=== PATIENT | female | born 1995 | race Caucasian/White ===

== ENCOUNTER 2022-05-21 16:06 | Inpatient (IN) | payer OTHER, SELFPAY ==
[2022-05-21] VITALS (14 sets, daily range): BP systolic 113–136; BP diastolic 65–79; PULSE 72–99; TEMP 36.3–36.8; BMI 27.0
--- NOTE | 2022-05-21 16:06 | LDADM ---
This patient, Lee Ann Hairston, was admitted to Labor/Delivery/Recovery 109 on 05/21/22 at 16:06. Plans for labor, pain management and were discussed with patient. Patient/family oriented to hospital policies and general routines including ID bracelet, bed and alarms, visiting hours, pain management, procedures, bathroom and other care routines, personal items, smoking policy, room service/diet and guest tray routines, security routines, and visiting hours. Patient/Family are encouraged to report perceived risks to care and to ask questions if they do not understand what they are told or what they should do. See OBIX for further documentation.
[2022-05-21 16:41] LABS: Basophils Percent Auto 0.3 % (0.2-1.2); Eosinophils Percent Auto 0.3 % (0-4.4); Hematocrit 34.6 % (37.0-47.0); Hemoglobin 12.1 g/dL (12.0-15.0); Immature Granulocyte Absolute 0.08 K/mm3 (0.00-0.031); Immature Granulocyte Percent A 0.7 % (0-0.5); Lymphocytes Absolute Auto 1.57 K/mm3 (0.9-3.2); Mean Corpuscular Hemoglobin 35.8 pg (26-34); Mean Corpuscular Volume 102.4 fl (80-100); Mean Platelet Volume 9.2 fl (7.4-10.4); Monocytes Absolute Auto 0.6 K/mm3 (0.1-0.6); Neutrophils Absolute Auto 9.8 K/mm3 (1.3-6.7); Neutrophils Percent Auto 80.7 % (45.5-73.1); Platelet Count Result 186 k/mm3 (150-375); Red Blood Count 3.38 M/mm3 (4.2-5.4); Red Cell Distribution Width 13.3 % (11.5-14.5); White Blood Count 12.1 K/mm3 (4.5-10.0)
[2022-05-21] MEDS: DINOPROSTONE 10 MG VAG INSERT VAGINAL (16:54)
--- NOTE | 2022-05-21 17:54 | WPDANESEPPF ---
Anes - Initial Pre Proc Eval Procedure: labor epidural Date/Time: 05/21/22 17:54 Surgeon: Damian Gupta MD Pre Op Diagnosis: labor pain Pre Op Diagnosis: Induction of Labor Patient Data Age: 27 Gender: F Height: 1.68 m Weight: 76 kg Last Vital Signs Temp 36.7 C 05/21/22 16:40 Pulse 84 05/21/22 17:45 BP 122/74 05/21/22 17:45 O2 Del Method Room Air 05/21/22 16:44 Allergies Allergy/AdvReac Type Severity Reaction Status Date / Time No Known Allergies Allergy Verified 04/27/22 12:40 Home Medications Medication Instructions Recorded Confirmed Type prenat.vits,maryam,[id number] 1 tablet PO HS 04/27/22 04/27/22 History Laboratory Tests 05/21/22 05/21/22 05/21/22 16:33 16:33 16:34 WBC 12.1 K/mm3 H K/mm3 (4.5-10.0) RBC 3.38 M/mm3 L M/mm3 (4.2-5.4) Hgb 12.1 g/dL g/dL (12.0-15.0) Hct 34.6 % L % (37.0-47.0) MCV 102.4 fl H fl (80-100) MCH 35.8 pg H pg (26-34) MCHC 35.0 g/dl g/dl (32-36) RDW 13.3 % % (11.5-14.5) Plt Count 186 k/mm3 k/mm3 (150-375) MPV 9.2 fl fl (7.4-10.4) Immature Gran % (Auto) 0.7 % H % (0-0.5) Neut % (Auto) 80.7 % H % (45.5-73.1) Lymph % (Auto) 13.0 % L % (18.3-44.2) [place] % (Auto) 5.0 % % (2.6-8.5) Eos % (Auto) 0.3 % % (0-4.4) Baso % (Auto) 0.3 % % (0.2-1.2) Lymph # (Auto) 1.57 K/mm3 K/mm3 (0.9-3.2) [place] # (Auto) 0.6 K/mm3 K/mm3 (0.1-0.6) Eos # (Auto) 0.0 K/mm3 K/mm3 (0-0.3) Baso # (Auto) 0.0 K/mm3 K/mm3 (0.0-0.1) Abs Immat Gran (auto) 0.08 K/mm3 H K/mm3 (0.00-0.031) Absolute Neuts (auto) 9.8 K/mm3 H K/mm3 (1.3-6.7) Absolute Nucleated RBC 0.0 K/mm3 K/mm3 (0.0-0.012) Nucleated RBC % 0.0 % % (0.0-0.2) RPR Pending Blood Type A Positive Antibody Screen Pending Patient hx anesthesia problems: none Family hx anesthesia problems: none Results Review: All pre-operative results and documents have been reviewed as part of the pre-operative evaluation. [facility] Past Medical History Medical History (Updated 05/21/22 @ 17:55 by Vasquez Horn DO) History of back injury Surgical History Surgical History (Updated 05/21/22 @ 17:55 by Vasquez Horn DO) History of laminectomy 2014 Family History Family History (Updated 04/27/22 @ 12:44 by Oneida Miles RN) Father Hypertension Social History Social History Smoking status: Never smoker Substance use: never Spiritual care concerns: No Anes - Eval Final PreProcedure Day of Procedure 05/21/22 17:54 Patient weight: overweight ASA classification: II Anesthetic plan: proceed Anesthesia type and monitoring: regional epidural and standard monitoring Results Review: All pre-operative results and documents have been reviewed as part of the pre-operative evaluation. Informed Consent: The patient's anesthetic plan and its attendant risks and benefits were discussed with the patient/family/POA. Questions were solicited and answers provided to the satisfaction of the patient/family/POA.
[2022-05-22] VITALS (120 sets, daily range): BP systolic 53–146; BP diastolic 14–84; PULSE 40–143; RESP 18; TEMP 36.4–36.8; O2SAT 75–100
[2022-05-22] MEDS: fentaNYL CITRATE INJ (*CRX) 100 MCG/2 ML VIAL 50 MCG IV PUSH ×2 (04:40→06:35)
[2022-05-22] MEDS: LACTATED RINGERS 1,000 ML 125 ML IV CONT ×2 (06:01→06:35)
[2022-05-22] MEDS: OXYTOCIN 30 UNITS/NS 500 ML 30 UNITS/500 ML BAG IV CONT (06:01)
--- NOTE | 2022-05-22 08:38 | PM.IMHP ---
H&P: HPI History of Present Illness Date/Time: 05/22/22 08:38 Chief Complaint: Here to have a baby Narrative: 27 y/o G1 at 39 2/7 weeks here desiring induction of labor. GBS neg. Cervidil last night, has been withdrawn. Now comfortable with epidural. Review of Systems Review of Systems: All systems reviewed & are unremarkable except as noted in HPI and below PMFSH Past Medical History Medical History History of back injury Surgical History Surgical History History of laminectomy 2014 Family History Family History Father Hypertension Social History Social History Smoking status: Never smoker Substance use: never Spiritual care concerns: No Meds Home Medications and Allergies Home Medications Medication Instructions Recorded Confirmed Type prenat.vits,maryam,qhx-stih-xjuva 1 tablet PO HS 04/27/22 04/27/22 History Allergies Allergy/AdvReac Type Severity Reaction Status Date / Time No Known Allergies Allergy Verified 04/27/22 12:40 Vital Signs Vital Signs - 24 hr 05/21/22 16:44 05/21/22 16:42 05/21/22 16:40 Temperature 36.7 C Pulse Rate 87 Blood Pressure 136/76 Pulse Oximetry Oxygen Delivery Room Air 05/21/22 16:45 05/21/22 17:00 05/21/22 17:15 Temperature Pulse Rate 89 99 84 Blood Pressure 129/68 131/79 125/72 Pulse Oximetry Oxygen Delivery 05/21/22 17:30 05/21/22 17:45 05/21/22 18:00 Temperature Pulse Rate 85 84 88 Blood Pressure 124/74 122/74 113/69 Pulse Oximetry Oxygen Delivery 05/21/22 18:15 05/21/22 18:30 05/21/22 18:45 Temperature Pulse Rate 78 79 80 Blood Pressure 115/65 117/74 123/76 Pulse Oximetry Oxygen Delivery 05/21/22 19:01 05/21/22 19:01 05/21/22 19:01 Temperature Pulse Rate 94 82 Blood Pressure 115/75 123/79 Pulse Oximetry Oxygen Delivery 05/21/22 19:00 05/21/22 23:01 05/22/22 02:59 Temperature 36.3 C L 36.8 C Pulse Rate 72 69 Blood Pressure 126/74 127/76 Pulse Oximetry Oxygen Delivery 05/22/22 05:59 05/22/22 06:01 05/22/22 06:15 Temperature Pulse Rate 90 73 88 Blood Pressure 135/80 128/84 146/80 H Pulse Oximetry Oxygen Delivery 05/22/22 06:31 05/22/22 06:44 05/22/22 06:45 Temperature Pulse Rate 75 92 Blood Pressure 136/62 132/54 L Pulse Oximetry 100 Oxygen Delivery 05/22/22 06:48 05/22/22 06:49 05/22/22 06:51 Temperature Pulse Rate 85 70 Blood Pressure 131/56 L 123/68 Pulse Oximetry 100 Oxygen Delivery 05/22/22 06:53 05/22/22 06:54 05/22/22 06:56 Temperature Pulse Rate 87 74 Blood Pressure 122/78 121/56 L Pulse Oximetry 100 Oxygen Delivery 05/22/22 06:58 05/22/22 06:59 05/22/22 07:01 Temperature Pulse Rate 81 78 Blood Pressure 128/68 113/59 L Pulse Oximetry 100 Oxygen Delivery 05/22/22 07:03 05/22/22 07:04 05/22/22 07:06 Temperature Pulse Rate 85 77 Blood Pressure 114/60 113/56 L Pulse Oximetry 99 Oxygen Delivery 05/22/22 07:08 05/22/22 07:09 05/22/22 07:10 Temperature Pulse Rate 68 73 Blood Pressure 118/63 126/71 Pulse Oximetry 99 Oxygen Delivery 05/22/22 07:13 05/22/22 07:14 05/22/22 07:16 Temperature Pulse Rate 109 H 74 Blood Pressure 113/68 127/61 Pulse Oximetry 99 Oxygen Delivery 05/22/22 07:18 05/22/22 07:19 05/22/22 07:20 Temperature Pulse Rate 78 72 Blood Pressure 117/63 116/58 L Pulse Oximetry 100 Oxygen Delivery 05/22/22 07:23 05/22/22 07:24 05/22/22 07:26 Temperature Pulse Rate 87 67 Blood Pressure 102/65 117/62 Pulse Oximetry 98 Oxygen Delivery 05/22/22 07:28 05/22/22 07:29 05/22/22 07:30 Temperature 36.7 C Pulse Rate 85 68 Blood Pressure 102/5
--- NOTE | 2022-05-22 12:13 | PM.OBPNLAB ---
Pain Control Date/time seen: 05/22/22 12:13 Comments: Feeling more pressure. AVSS NST reactive TOCO: contractions every 2-3 min Cervix complete / +2 Begin pushing.
--- NOTE | 2022-05-22 13:44 | PM.OBPRVD ---
OB - Delivery Note Procedure Delivery date: 05/22/22 Procedure: Induction of labor with Induction method: Per Pitocin Protocol Delivery augmentation: Rupture of Membranes Delivery monitor: External FHT, External Uterine and Internal Uterine Route of delivery: Laceration Description: Perineal - 2nd Degree Delivery repair: vicryl (3-0) Quantitative Blood Loss (ml): 380 Anesthesia type: Epidural Disposition: PACU Complications: None Narrative: 27 y/o G1 at 39 2/7 weeks gestation who presented to the hospital for induction of labor. Oxytocin was administered intravenously. Amniotomy was performed with return of clear fluid. She received an epidural for pain control. Her labor progressed and her cervix dilated completely. She pushed with good effort and delivered the infant's head to the perineum, followed by the body. The nose and mouth were bulb suctioned. After a delay, the cord was clamped and cut. The was handed off the field. Cord blood was collected. The placenta delivered spontaneously and was grossly normal in appearance. The usual 3 vessel cord was noted. A second degree midline perineal laceration was sustained. This was reapproximated using 3 0 Vicryl in the usual layered fashion. Excellent hemostasis resulted as did excellent reapproximation of the normal anatomy. Needle and instrument counts were correct. The patient was taken to recovery room in stable condition. The went to the nursery in stable condition. I was present and scrubbed for the entire delivery. Baby Date of : 05/22/22 Time of : 13:13 Weeks of gestation at delivery: 39 gender: Male Weight (pounds): 7 Weight (ounces): 8 presentation: vertex position: Right Occiput Anterior Placenta delivery description: Spontaneous and Normal Configuration Cord Vessel Description: 3 Vessels and Delayed Cord Clamping score one minute: 9 score five minutes: 9
--- NOTE | 2022-05-22 13:46 | PM.OBDSVD ---
DS: Admitting Diagnosis Discharge Date 05/24/22 Admitting Diagnosis IUP at 39 2/7 weeks DS: Discharge Diagnosis Discharge Diagnosis (1) (normal spontaneous vaginal delivery): Code(s): O80 - Encounter for full-term uncomplicated delivery Status: Acute OB - DS: Summary OB Procedures : None OB Procedures Intrapartum: Spontaneous Vag Delivery OB Procedures: : None Time Spent with Patient Time attestation: Total time spent providing and/or coordinating discharge services: DS: Data Data Completed and Pending Labs on day of discharge: Labs from last 24 hours 05/21/22 05/21/22 05/21/22 16:34 16:33 16:33 WBC 12.1 H RBC 3.38 L Hgb 12.1 Hct 34.6 L MCV 102.4 H MCH 35.8 H MCHC 35.0 RDW 13.3 Plt Count 186 MPV 9.2 Immature Gran % (Auto) 0.7 H Neut % (Auto) 80.7 H Lymph % (Auto) 13.0 L [place] % (Auto) 5.0 Eos % (Auto) 0.3 Baso % (Auto) 0.3 Lymph # (Auto) 1.57 [place] # (Auto) 0.6 Eos # (Auto) 0.0 Baso # (Auto) 0.0 Abs Immat Gran (auto) 0.08 H Absolute Neuts (auto) 9.8 H Absolute Nucleated RBC 0.0 Nucleated RBC % 0.0 RPR Pending Blood Type A Positive Antibody Screen Negative Discharge Plan Discharge Attending physician on discharge: Damian Gupta Discharging Clinician: Damian Gupta Patient Disposition: Home, Self-Care Activity: pelvic rest Diet: regular Discharge Instructions: Call or return if temperature above 100.4? F, increased abdominal pain, increased vaginal bleeding or any new problems. Stand Alone Forms: General Discharge Information Follow-up/Referrals: Damian Gupta MD [Physician] - 6 Weeks Discharge Medications: New ibuprofen 600 mg tablet 600 mg PO Q6H PRN (Reason: cramps) Qty: 30 0RF hydrocodone-acetaminophen 5-325 mg tablet 1 tablet PO Q4-6H PRN (Reason: pain) Qty: 20 0RF Continued #2 Tablet 1 tablet PO HS Date of admission: 05/21/22 16:06 Primary Care Provider: Yvrose,Hardik Admitting Provider: Damian Gupta Attending physician on admission: Damian Gupta Condition: Stable
[2022-05-22 15:05] LABS: Rapid Plasma Reagin Non-Reactive (NonReactive)
--- NOTE | 2022-05-22 15:59 | OBPPTRN ---
1557-Patient transferred to post room #288 via wheelchair. Support person present. Oriented to unit, room, information board, rooming in, admission packet and security measures. Patient verbalizes understanding.
[2022-05-22] MEDS: IBUPROFEN 600 MG TABLET PO (18:02)
[2022-05-22] MEDS: DOCUSATE SODIUM 100 MG CAPSULE PO (18:02)
[2022-05-22] MEDS: ACETAMINOPHEN 325 MG TABLET 650 MG PO (22:05)
[2022-05-23 01:08] VITALS: BP 120/73; PULSE 93; RESP 18; TEMP 36.5; O2SAT 98
[2022-05-23 05:52] VITALS: BP 110/80; PULSE 91; RESP 18; TEMP 36.8; O2SAT 97
[2022-05-23] MEDS: IBUPROFEN 600 MG TABLET PO ×2 (05:57→14:05)
[2022-05-23 07:34] LABS: Hematocrit 29.9 % (37.0-47.0); Hemoglobin 10.1 g/dL (12.0-15.0)
[2022-05-23 07:40] VITALS: BP 106/59; PULSE 82; RESP 18; TEMP 36.8; O2SAT 99
--- NOTE | 2022-05-23 08:43 | PM.OBPNVD ---
OB - PN: Subj Subjective Date/time seen: 05/23/22 08:43 Narrative: Perineum sore, would like to increase pain meds. Would like circumcision for son. OB - PN: Obj Data Labs CBC & Chem 7: 05/23/22 07:20 Labs: Laboratory Results - last 24 hr 05/21/22 05/23/22 16:33 07:20 Hgb 10.1 L Hct 29.9 L RPR Non-reactive OB - PN A/P Plan Comments: A: PPD#1, doing well. P: Add [place] for pain control. Reviewed circ. Routine care. Exam Psych: Other: AVSS ABD soft, nontender, fundus firm EXT nontender
--- NOTE | 2022-05-23 08:43 | WPDANLDPN2 ---
Anes-Prog Note L&D Date/Time: 05/23/22 08:43 Neuraxial method: epidural Neuro status: Neuro function grossly intact. Vital Signs: Last Vital Signs Temp 36.8 C 05/23/22 07:40 Pulse 82 05/23/22 07:40 Resp 18 05/23/22 07:40 BP 106/59 L 05/23/22 07:40 Pulse Ox 99 05/23/22 07:40 O2 Del Method Room Air 05/22/22 16:30 Patient feedback: Patient satisfied with anesthetic care.
--- NOTE | 2022-05-23 08:46 | WPDANLDPN2 ---
Anes-Prog Note L&D Date/Time: 05/23/22 08:46 Comfortable throughout: labor and delivery Neuraxial method: epidural Epidural/Spinal procedure site: clean & non-tender Neuro status: Neuro function grossly intact. Cardiovascular status: normal Respiratory status: normal Airway patency: baseline Mental status: baseline Post-Op hydration status: normal Vital Signs: Last Vital Signs Temp 36.8 C 05/23/22 07:40 Pulse 82 05/23/22 07:40 Resp 18 05/23/22 07:40 BP 106/59 L 05/23/22 07:40 Pulse Ox 99 05/23/22 07:40 O2 Del Method Room Air 05/22/22 16:30 Pain score (VAS): 3 Post-procedural complaints: none Patient feedback: Patient satisfied with anesthetic care.
[2022-05-23] MEDS: MULTIVIT/MIN/PREN/FOL AC/IRON TABLET 1 TAB PO (09:13)
[2022-05-23] MEDS: DOCUSATE SODIUM 100 MG CAPSULE PO (09:13)
[2022-05-23] MEDS: HYDROcodone/acetaminophen (*CRX) 5-325 MG TABLET 1 TAB PO (09:13)
[2022-05-23 12:14] VITALS: BP 123/77; PULSE 78; RESP 16; TEMP 36.3; O2SAT 98
--- NOTE | 2022-05-23 13:16 | PC.NURSE ---
[id number] Consulted with patient to assess needs related to . Mother led conversation with her experience with feeding baby so far. Mother works well with her infant with encouragement. Blood sugar was resulted at 65mg/dl due to had not eaten in 6 hours. Reviewed working with infant, breast, nipples and how to protect the nipples with an optimal deep latch, good positioning, and good hand washing. Encouraged understanding the benefits of skin to skin, responding to feeding cues, frequencies of feeding on demand (approximately 2-3 hours), duration of feedings, milk production, intake/output feeding sheet and signs of adequate intake encouraging swallowing at the breast. Reviewed positioning and alignment, supporting breast, off-centered (asymmetrical latch) and leading with the chin with big, open, wide gape. Infant latched optimally to the right breast in football position. Mother voiced understanding of how to visualize suck/swallow ratios and drinking at the breast. Infant was able to maintain latch without discomfort to mother. Nipple care reviewed with optimal latch and good positioning and to have clean hands when touching the nipple/breast. Resources used to facilitate learning were used from the tool and mom and baby guide. Mother voiced understanding of the education shared, calling for assistance if the infant does not latch or if there is discomfort with . Reported to the primary RN.
[2022-05-23 21:22] VITALS: BP 110/64; PULSE 92; RESP 16; TEMP 36.8; O2SAT 97
--- NOTE | 2022-05-24 06:43 | PM.OBPNVD ---
OB - PN: Subj Subjective Date/time seen: 05/24/22 06:43 Patient comments: no complaints and pain well controlled baby status: doing well OB - PN: Obj Data Labs CBC & Chem 7: 05/23/22 07:20 Labs: Laboratory Results - last 24 hr 05/23/22 07:20 Hgb 10.1 L Hct 29.9 L OB - PN A/P Plan day: 2 Plan: routine care, discharge home and follow up 6 weeks Time Spent With Patient Time: Total time spent is greater than 50% in coordination of care (as documented) at patient's floor/unit and/or counseling patient: Time with patient: less than 15 minutes Exam Const: General: cooperative, healthy appearing and comfortable Orientation/consciousness: oriented to person, oriented to place and oriented to time Resp: Effort & Inspection: normal respiratory effort GI: Inspection: normal to inspection
[2022-05-24 08:00] VITALS: BP 126/82; PULSE 98; RESP 16; TEMP 37.1; O2SAT 99
[2022-05-24] MEDS: MULTIVIT/MIN/PREN/FOL AC/IRON TABLET 1 TAB PO (08:22)
[2022-05-24] MEDS: DOCUSATE SODIUM 100 MG CAPSULE PO (08:22)
[2022-05-24] MEDS: IBUPROFEN 600 MG TABLET PO (08:22)
--- NOTE | 2022-05-24 10:30 | PC.NURSE ---
Patient viewed the discharge video Mother & Baby Care, The First Two Weeks . Patient was given the opportunity and encouraged to ask questions. Patient verbalized understanding of information shared and has been given the mother/baby guide for home reference.
--- NOTE | 2022-05-24 14:34 | PC.NURSE ---
[id number] Mother led the conversation with her experience and plan to feed her so far and her ability to independently latch optimally without discomfort. Reminded parents to use good handwashing technique to prevent infection. Mother is feeding appropriately for growth of and understands stimulating to eat if needed. Infant has had appropriate feedings in the last 24 hours meets the outcomes for weight, output and jaundice at this time. Mother states she is confident to continue effectively her infant at home or when to call for assistance and denies any additional assistance or education at this time. Reinforced understanding of milk production, transition of milk, signs of adequate intake, prevention/relief of engorgement, responsive after visualizing feeding cues, the different methods of stimulating infant to breastfeed 2-3 hours after the start of the last feeding, community resources, medication information reviewed per [employer] and when to call a provider using the resource of the mom and baby guide/[facility] website. Mother voiced understanding of the education shared.
[2022-05-25 10:42] VITALS: BP 125/75; PULSE 92; RESP 20; TEMP 37.1; O2SAT 99
== END 2022-05-24 11:38 | disposition home or self-care (01) | DRG 807 ==
LOC: ANHLDR 05-22 14:10 → ANHOB2 05-22 16:02
PROVIDERS: Admitting Provider Obstetrics & Gynecology; PCP Family Medicine; Visit Provider Obstetrics & Gynecology
DX: O36.8330 Maternal care for abnormalities of the fetal heart rate or rhythm, third trimester, not applicable or unspecified (principal); Z37.0 Single live birth; Z3A.39 39 weeks gestation of pregnancy; O70.1 Second degree perineal laceration during delivery
CPT/HCPCS: 36415; 85014; 85018; 85025; 86592; 86850; 86900; 86901; A9270; J2590; J2795; J3010; J7120

== ENCOUNTER 2025-02-02 09:11 | Outpatient (CLI) | payer OTHER, SELFPAY ==
--- NOTE | ~2025-02-02 | US_ITS ---
Pelvic ultrasound. Clinical History: First trimester , establish dates and viability Technique: Realtime transabdominal and transvaginal scanning of the pelvis was performed. Color flow Doppler and Doppler spectral analysis were performed. Findings: The uterus is anteverted, and contains an intrauterine gestation. [place]-rump length of 2.2 cm corresponds to an estimated gestational age of 8 weeks 6 days. heart rate is 174 bpm. Small subchorionic hemorrhage present. Neither ovary seen. No adnexal mass seen. There is no evidence of free fluid in the cul de sac. Impression: Live intrauterine gestation, with estimated gestational age of 8 weeks 6 days. heart rate is 17 4 bpm. Small subchorionic hemorrhage. Reviewed, dictated and finalized at location . Impression: Live intrauterine gestation, with estimated gestational age of 8 weeks 6 days. heart rate is 174 bpm. Small subchorionic hemorrhage.
== END 2025-02-02 09:12 | disposition home or self-care (01) ==
PROVIDERS: PCP Nurse Practitioner Family; Visit Provider Nurse Practitioner Family
DX: O36.80X0 Pregnancy with inconclusive fetal viability, not applicable or unspecified (principal); Z3A.08 8 weeks gestation of pregnancy
CPT/HCPCS: 76801